=== PATIENT | male | born 1955 | race Hispanic/Latino ===

== ENCOUNTER 2018-10-22 06:55 | Day surgery (SDC) | payer OTHER ==
[2018-10-20 17:44] LABS: Absolute Monocytes 0.7 K/uL (0.1-1.3); Absolute Neutrophil 5.5 K/uL (1.8-8.0); Eosinophils % 2.7 % (0-4.4); Hematocrit 44.4 % (39.6-49.0); Lymphocytes % 23.4 % (15.3-44.8); MPV 10.3 fL (7.6-11.3); Monocytes % 8.2 % (3.3-12.3); RBC Red Blood Cell Count 4.72 M/uL (4.33-5.43)
[2018-10-20 17:55] LABS: Potassium 4.9 mmol/L (3.5-5.1)
--- NOTE | 2018-10-20 17:58 | RAD REPORT ---
EXAM DESCRIPTION: RAD - Chest Pa And Lat (2 Views) - 10/20/2018 5:47 pm CLINICAL HISTORY: Preop chest, pending cholecystectomy COMPARISON: November 2017 TECHNIQUE: PA and lateral views of the chest were obtained. FINDINGS: The lungs are clear of focal lung parenchymal process. No failure or volume overload. Rashad g markings are similar to comparison. Heart size is normal and central vasculature is within normal l imits. No pleural effusion or pneumothorax seen. No acute bony finding noted. No aortic abnormalit y. IMPRESSION: No acute cardiopulmonary process.
[2018-10-20 18:05] LABS: Albumin 3.7 g/dL (3.4-5.0); Bilirubin Direct 0.1 mg/dL (0-0.2); Bilirubin Total 0.4 mg/dL (0.2-1.0); Protein, Total 7.5 g/dL (6.4-8.2)
--- OUTSIDE RECORDS SUMMARY | 2018-10-22 06:58 | XMS REPORT | Continuity of Care Document ---
:1955 Author Organization Interface Problems Problem Status Onset Date Classification Date Comments Source Reported Medications Medication Details Route Status Patient Ordering Order Source Instructions Provider Date Allergies, Adverse Reactions, Alerts Substance Category Reaction Severity Reaction Status Date Comments Source type Reported Immunizations Immunization Date Given Site Status Last Updated Comments Source Results Order Results Value Reference Date Interpretation Comments Source Name Range Vital Signs Vital Sign Value Date Comments Source Encounters Location Location Encounter Encounter Reason Attending ADM DC Status Source Details Type Number For Provider Date Date Visit Outpatient [id number] GLENYS 12/05 [facility] [place] Outpatient [id number] GLENYS 01/02 [facility] [place] Outpatient [id number] GLENYS 01/16 [facility] [place] Outpatient [id number] GLENYS 07/24 [facility] [place] Procedures Procedure Code Date Perfomer Comments Source
[2018-10-22] MEDS ORDERED: CEFOXITIN/SWI 1gm 1 GM/10 ML SYR ONE ×2 (07:28→09:26)
[2018-10-22] MEDS ORDERED: Ringers Lactate 0 ML IV ONE (07:28)
[2018-10-22] MEDS ORDERED: NA CHLORIDE 0.9% 1,000 ML ONE ×2 (07:31→10:21)
[2018-10-22] MEDS ORDERED: PROPOFOL 200 MG/20 ML VIAL IV ONE (08:34)
[2018-10-22] MEDS ORDERED: BUPIVACAINE 0.25% PF 10 ML VIAL ONE (08:35)
[2018-10-22] MEDS ORDERED: FENTANYL CITR 100 MCG/2 ML ONE (08:35)
[2018-10-22] MEDS ORDERED: MIDAZOLAM HCL 2 MG/2 ML INJ ONE ×2 (08:37→10:19)
[2018-10-22] MEDS ORDERED: LIDOCAINE 2% MPF 5 ML VIAL ONE (08:37)
[2018-10-22] MEDS ORDERED: ROCURONIUM 50 MG/5 ML VIAL IV ONE (08:38)
[2018-10-22] MEDS ORDERED: ONDANSETRON 4 MG/2 ML VIAL ONE (08:38)
[2018-10-22] MEDS ORDERED: Phenylephrine HCl 10 MG/ML 1 ML VIAL ONE (09:24)
--- NOTE | 2018-10-22 09:44 | P.BOP ---
Preoperative diagnosis: acute cholecystitis, symptomatic cholelithiasis Postoperative diagnosis: same Primary procedure: Laparoscopic cholecystectomy Estimated blood loss: <10cc Specimen: gb Findings: as above Anesthesia: General Complications: None Transferred to: Recovery Room Condition: Good
[2018-10-22] MEDS ORDERED: GLYCOPYRROLATE 0.2 MG/ML SYR ONE (09:54)
[2018-10-22] MEDS ORDERED: NEOSTIGMINE 1 MG/ML -10 ML VIAL ONE (09:54)
[2018-10-22] MEDS ORDERED: MORPHINE 4 MG/ML SYR ONE (10:13)
[2018-10-22] MEDS ORDERED: HYDROCODONE/APAP 7.5/325 MG TAB ONE (12:12)
--- NOTE | 2018-10-27 22:36 | OP ---
Date of Procedure: 10/22/2018 Surgeon: Joel Landaverde MD Preoperative Diagnoses: Acute cholecystitis, symptomatic cholelithiasis. Postoperative Diagnoses: Acute cholecystitis, symptomatic cholelithiasis. Procedure: Laparoscopic cholecystectomy. Anesthesia: General plus local. Indications: This is the case of a male come to us with above diagnosis. Fully explained the benefi ts, alternatives, and risks of laparoscopic, possible open cholecystectomy, which include but are not limited to infection, bleeding, damage to adjacent structures, anesthesia complication, choledocholi thiasis, bile leak, pancreatitis, VT, and even . He also understands this may not relieve any s ymptoms. He might need more than one surgical intervention. He understood and signed a consent. Description Of Procedure: The patient was brought to the operating room and placed in supine positio n. Anesthesia was done without complication. Abdominal area was prepped and draped in usual sterile fashion. Marcaine 0.5% was injected for local anesthetic, followed by sharp incision of the skin in the infraumbilical region. Incision was carried down to fascia, which was opened under direct visio n. Peritoneum was encountered, opened under direct vision. Vicryl #1 placed inside of the fascia. Fabricio trocar was carefully introduced. No bleeding was obtained. I placed 3 more trocars, 5 mm eac h one of them, in the epigastric and right upper quadrant under direct visualization. This allowed m e to put a grasper in the fundus of the gallbladder, another grasper in the infundibulum, retracted t he gallbladder in the inferolateral fashion exposing the triangle of Calot, obtaining critical view o f safety. The cystic duct and cystic artery were clearly isolated free circumferentially and a conne ction between those and the gallbladder was clearly identified. I proceeded to ligate those by using at least 3 clips proximal, 1 clip distal, ligation in middle. Same was done with cystic artery. No bile leak. No bleeding. The gallbladder was removed from liver using Bovie cauterizer and removed from abdominal cavity using EndoCatch through umbilical incision. The area was inspected once again. No bile leak. No bleeding. At that moment, I proceeded to remove the trocars under direct vision. Deflated the pneumoperitoneum. Closed the fascia with #1 Vicryl. Irrigated subcutaneous tissue, c losed that with 3-0 chromic and then the skin with samantha. Sponge counts and instrument counts were correct. The patient tolerated the procedure well. The patient was sent to recovery in stable cond ition. MAKENNA/MARIE Voice ID: [id number] Report ID: [id number]
--- NOTE | 2018-10-27 22:42 | OP ---
Surgeon: Joel Landaverde MD Diagnoses: Acute cholecystitis, symptomatic cholelithiasis. Procedure: Laparoscopic cholecystectomy. Disposition: Home. Activity: As tolerated. No heavy lifting. Followup: Follow up in my office in 1 week. Call for appointment at [phone]. Keep the area dry fo r 48 hours, then may shower. Medications: See orders. MAKENNA/MARIE Voice ID: [id number] Report ID: [id number]
== END 2018-10-22 13:40 | disposition home or self-care (01) ==
LOC: OR 06:55
PROVIDERS: ATTEND Surgery
PROC: 0FT44ZZ Resection of Gallbladder, Percutaneous Endoscopic Approach (ICD-10-PCS; principal; 2018-10-22 08:15)
DX: K80.10 Calculus of gallbladder with chronic cholecystitis without obstruction (principal); E11.9 Type 2 diabetes mellitus without complications; I10 Essential (primary) hypertension; Z79.84 Long term (current) use of oral hypoglycemic drugs; Z79.82 Long term (current) use of aspirin; Z79.899 Other long term (current) drug therapy
CPT/HCPCS: 36415; 71046; 80048; 80076; 82150; 82962; 83690; 85025; 88304; J2250; J2370; J2405; J2704; J2710; J3010; J7030

== ENCOUNTER 2021-02-27 12:00 | Day surgery (SDC) | payer OTHER ==
--- NOTE | 2021-02-24 13:47 | RAD REPORT ---
EXAM DESCRIPTION: RAD - Chest Pa And Lat (2 Views) - 02/24/2021 1:09 pm CLINICAL HISTORY: microbiological lab technician pre-op COMPARISON: October 2018 TECHNIQUE: Frontal and lateral views of the chest were obtained. FINDINGS: The lungs are clear. Interstitial pattern matches comparison. No cherelle mass or lymphadenop athy seen. Heart size is normal and central vasculature is within normal limits. No pleural effusion or pneumothorax seen. No acute bony finding noted. No aortic abnormality. IMPRESSION: No acute cardiopulmonary process. No significant change from comparison study.
[2021-02-24 14:11] LABS: Potassium 4.2 mmol/L (3.5-5.1)
[2021-02-24 14:20] LABS: Absolute Lymphocytes (CBC) 2.5 K/uL (0.7-4.9); Basophils % 0.7 % (0-1.3); Hematocrit 46.5 % (39.6-49.0); Lymphocytes % 33.2 % (15.3-44.8); MPV 10.4 fL (7.6-11.3); RBC Red Blood Cell Count 4.95 M/uL (4.33-5.43)
[2021-02-24 14:46] LABS: Protime INR 0.94
[~2021-02-27 12:00] MED LIST: HEPA 1000U/500MLS 2,000 UNIT/1,000 ML BAG IV ONE; LIDOCAINE 1% 20 ML MDV ONE
[2021-02-27] MEDS ORDERED: NA CHLORIDE 0.9% 500 ML ONE (12:55)
[2021-02-27] MEDS ORDERED: MIDAZOLAM HCL 2 MG/2 ML INJ ONE (13:52)
[2021-02-27] MEDS ORDERED: HEPARIN 5000 UNIT/ML 1 ML VIAL ONE (13:53)
[2021-02-27] MEDS ORDERED: ATROPINE SULF 1 MG/10 ML SYR IV ONE (13:53)
[2021-02-27] MEDS ORDERED: VERAPAMIL HCL 10 MG/4 ML VIAL IV ONE (13:53)
[2021-02-27] MEDS ORDERED: FENTANYL CITR 100 MCG/2 ML ONE (13:53)
--- NOTE | 2021-02-27 14:55 | OP ---
Date of Procedure: 02/27/2021 Surgeon: WEST BERRIOS Procedures Performed: 1.Selective coronary angiogram. 2.Left heart catheterization. Indication: Unstable angina. Access: Right radial artery 6-Filipino closed with TR band. Complications: None. Bleeding: Less than 10 mL. Description Of Procedure: After risks, benefits, and alternatives were explained, the patient agreed to proceed and signed informed consent. The patient was brought to the cardiac catheterization [facility], prepped and draped in usual sterile fashion. Then, I accessed right radial artery using pedi atric micropuncture kit and placed a 6-Filipino Slender sheath. Then, I took a 5-Filipino [place] 4.0 cath eter into the aortic root, engaged left main and right coronary artery, took standard views and the c atheter was pushed over the wire into the LV, recorded LVEDP and then upon pullback, there was no gra dient. I removed the catheter and sheath, and placed TR band with good hemostasis. Findings: 1.Left main; distal 50% stenosis. 2.LAD; ostial 70% to 80% stenosis and then mid 80% stenosis. Diagonal branches appear normal. 3.Left circumflex; kdddsfuw-lt-hlzoc size vessel with ostial 70% stenosis. 4.Ramus intermedius is a large vessel with ostial 90% stenosis and there is an OM2 branch that has a bout 60% to 70% stenosis proximally. 5.RCA is very small, nondominant. No significant disease. 6.LVEDP of 18 mmHg. Conclusion: Severe multivessel coronary artery disease. It is a trifurcation distal left main with LAD ostially, ramus intermedius ostially, and the circumflex ostially will make the intervention very high risk. Recommendation: Recommend Surgery evaluation for triple-vessel coronary artery bypass surgery. SR/MODL Voice ID: [id number] Report ID: [id number]
[2021-02-27 15:14] VITALS: TEMP 98.4
[2021-02-27 16:49] VITALS: BP 154/87; O2SAT 96
== END 2021-02-27 16:49 | disposition home or self-care (01) ==
LOC: CCL 12:00
PROVIDERS: ATTEND Internal Medicine
DX: I25.110 Atherosclerotic heart disease of native coronary artery with unstable angina pectoris (principal); I10 Essential (primary) hypertension; E11.9 Type 2 diabetes mellitus without complications; E78.5 Hyperlipidemia, unspecified; Z20.822 Contact with and (suspected) exposure to COVID-19
CPT/HCPCS: 85025; 80048; 36415; 85610; 82947; 85730; 71046; 93458; U0003; C1893; J1644 ×2; J2250; J3010; J7040

== ENCOUNTER 2024-06-09 14:36 | Emergency (ER) | payer OTHER ==
--- NOTE | 2024-06-09 15:48 | RAD REPORT ---
Procedure: Chest Pa And Lat (2 Views) HISTORY: Cough COMPARISON: 2020 FINDINGS: The lungs appear clear of acute infiltrate. No significant pleural effusion noted. The heart is normal size. Post surgical changes involve the chest IMPRESSION: No acute abnormality is displayed.
[2024-06-09 15:54] LABS: SARS-CoV-2 Antigen CONTROL BLUE LINE VIS/BG OK; SARS-CoV-2 Antigen Rapid Res Negative (Negative)
--- NOTE | 2024-06-09 16:40 | EDPHYS ---
Physician Documentation [facility] Name: Steven Siddiqi Age: 68 yrs Sex: Male : 1955 Arrival Date: 06/09/2024 Time: 14:36 Bed 12 Private MD: ED Physician Emil Cope HPI: 06/09 16:34 This 68 yrs old Male presents to ER via Ambulatory with complaints of Cough. cricket 16:34 The patient or guardian reports airway noise, cough, described as mild, difficulty cricket breathing, flu symptoms. Onset: The symptoms/episode began/occurred 3 day(s) ago. Severity of symptoms: At their worst the symptoms were mild, moderate, in the emergency department the symptoms are unchanged. Modifying factors: The symptoms are alleviated by nothing, the symptoms are aggravated by exertion. Associated signs and symptoms: Pertinent positives: rhinorrhea, sore throat. The patient has not experienced similar symptoms in the past. Historical: - Allergies: 15:13 No Known Allergies; hb - PMHx: 17:32 Diabetes mellitus; Hypercholesterolemia; jl7 - PSHx: 15:13 CABG; hb - Immunization history:: Adult Immunizations unknown. - Infectious Disease History:: Denies. - Social history:: Smoking status: unknown. ROS: 16:35 Constitutional: Negative for fever, chills, and weight loss, Eyes: Negative for injury, cricket pain, redness, and discharge, ENT: Negative for injury, pain, and discharge, Neck: Negative for injury, pain, and swelling, Cardiovascular: Negative for chest pain, palpitations, and edema, Abdomen/GI: Negative for abdominal pain, nausea, vomiting, diarrhea, and constipation, Back: Negative for injury and pain, : Negative for injury, bleeding, discharge, and swelling, MS/Extremity: Negative for injury and deformity, Skin: Negative for injury, rash, and discoloration, Neuro: Negative for headache, weakness, numbness, tingling, and seizure, Psych: Negative for depression, anxiety, suicide ideation, homicidal ideation, and hallucinations, Allergy/Immunology: Negative for hives, rash, and allergies, Endocrine: Negative for neck swelling, polydipsia, polyuria, polyphagia, and marked weight changes, Hematologic/Lymphatic: Negative for swollen nodes, abnormal bleeding, and unusual bruising, 16:35 Respiratory: Positive for cough, "sounds productive", wheezing, expiratory, Exam: 16:35 Constitutional: This is a well developed, well nourished patient who is awake, alert, cricket and in no acute distress. Head/Face: Normocephalic, atraumatic. Eyes: Pupils equal round and reactive to light, extra-ocular motions intact. Lids and lashes normal. Conjunctiva and sclera are non-icteric and not injected. Cornea within normal limits. Periorbital areas with no swelling, redness, or edema. ENT: Nares patent. No nasal discharge, no septal abnormalities noted. Tympanic membranes are normal and external auditory canals are clear. Oropharynx with no redness, swelling, or masses, exudates, or evidence of obstruction, uvula midline. Mucous membranes moist. Neck: Trachea midline, no thyromegaly or masses palpated, and no cervical lymphadenopathy. Supple, full range of motion without nuchal rigidity, or vertebral point tenderness. No Meningismus. Chest/axilla: Normal chest wall appearance and motion. Nontender with no deformity. No lesions are appreciated. Cardiovascular: Regular rate and rhythm with a normal S1 and S2. No gallops, murmurs, or rubs. Normal PMI, no JVD. No pulse deficits. Abdomen/GI: Soft, non-tender, with normal bowel sounds. No distension or tympany. No guarding or rebound. No evidence of tenderness throughout. Back: No spinal tenderness. No costovertebral tenderness. Full range of motion. Male : Normal genitalia with no discharge or lesions. Skin: Warm, dry with normal turgor. Normal color with no rashes, no lesions, and no evidence of cellulitis. MS/ Extremity: Pulses equal, no cyanosis. Neurovascular intact. Full, normal range of motion., bilateral aka Neuro: Awake and alert, GCS 15, oriented to person, place, time, and situation. Cranial nerves II-XII grossly intact. Motor strength 5/5 in all extremities. Sensory grossly intact. Cerebellar exam normal. Normal gait. Psych: Awake, alert, with orientation to person, place and time. Behavior, mood, and affect are within normal limits. 16:35 Respiratory: the patient does not display signs of respiratory distress, Respirations: normal, no acute changes, labored breathing, is not present, Breath sounds: rhonchi, that are mild, stridor, is not appreciated, + upper airway congestion. Respiratory rate: 20 16:35 Musculoskeletal/extremity: DVT Exam: No signs of deep vein thrombosis. no pain, no swelling, no tenderness, negative Homans' sign noted on exam, no appreciated bluish discoloration, no erythema, no increased warmth, Vital Signs: 15:12 BP 185 / 87; Pulse 88; Resp 20; Temp 99.2(O); Pulse Ox 100% on R/A; Weight 81.65 kg; hb Height 5 ft. 6 in. ; Pain 0/10; 17:32 BP 141 / 73; Pulse 115; Resp 15; Pulse Ox 100% ; jl7 18:10 BP 143 / 75; Pulse 132; Resp 15; Temp 99.1; Pulse Ox 96% ; jl7 15:12 Body Mass Index 29.05 (81.65 kg, 167.64 cm) hb 15:12 Pain Scale: Adult hb MDM: 14:45 Medical Screening Exam initiated cricket 16:36 Differential diagnosis: obstructed airway, tracheal injury, bronchitis, flu, URI. cricket Antibiotic administration: The patient is discharged and will get outpatient antibiotics, Zithromax. Differential Diagnosis: Obstructed Airway Bronchitis Influenza Upper Respiratory Infection Pharyngitis Allergic Rhinitis Asthma Exacerbation Viral Syndrome. Data reviewed: vital signs, nurses notes, lab test result(s), radiologic studies, plain films. Consideration of Admission/Observation Escalation of care including admission/observation considered. I considered the following discharge prescriptions or medication management in the emergency department Medications were administered in the Emergency Department. See MAR. Independent interpretation of the following test(s) in the Emergency Department X-Ray: My interpretation is cxr. Test considered but Not performed: Labs: no labs. Care significantly affected by the following chronic conditions: none. Counseling: I had a detailed discussion with the patient and/or guardian regarding the historical points, exam findings, and any diagnostic results supporting the discharge/admit diagnosis, lab results, radiology results, the need for outpatient follow up, for definitive care, a family practitioner, a insights strategist. 06/09 14:46 Order name: Flu; Complete Time: 16:32 [facility] 06/09 14:46 Order name: SARS RAPID; Complete Time: 16:32 [facility] 06/09 14:46 Order name: Strep [facility] 06/09 15:58 Order name: Throat Culture [facility] 06/09 14:46 Order name: Chest Pa And Lat (2 Views) XRAY; Complete Time: 16:32 cricket Administered Medications: 17:40 Drug: Rocephin (cefTRIAXone) IM 1 grams IM once Route: IM; Site: left ventrogluteal; jl7 18:10 Follow up: Response: No adverse reaction jl7 17:48 Drug: Levalbuterol Inhalation 2.5 mg Inhalation once Route: Inhalation; jl7 18:11 Follow up: Response: No adverse reaction jl7 17:48 Drug: Dexamethasone IM 10 mg IM once Route: IM; Site: left deltoid; jl7 18:11 Follow up: Response: No adverse reaction jl7 17:48 Drug: Dexamethasone PO 1 mg PO once; to neb Route: PO; jl7 18:11 Follow up: Response: No adverse reaction jl7 17:48 Drug: Tussionex Pennkinetic ER PO Suspension 5 ml PO once Route: PO; jl7 18:11 Follow up: Response: No adverse reaction jl7 17:48 Drug: AZITHromycin PO 500 mg PO once Route: PO; jl7 18:11 Follow up: Response: No adverse reaction jl7 Disposition Summary: 06/09/24 16:40 Discharge Ordered Notes: Location: Home cricket Problem: new cricket Symptoms: have improved cricket Condition: Stable cricket Diagnosis - Cough cricket - Acute bronchospasm cricket - Fever, unspecified cricket - Acute upper respiratory infection, unspecified cricket Followup: cricket - With: Private Physician - When: 2 - 3 days - Reason: Recheck today's complaints, Continuance of care, Re-evaluation by your physician Followup: cricket - With: Tom Pichardo MD - When: 2 - 3 days - Reason: Recheck today's complaints, Re-evaluation by your physician Discharge Instructions: - Discharge Summary Sheet cricket - Bronchospasm, Adult cricket - Fever, Adult cricket - Upper Respiratory Infection, Adult cricket - Cool Mist Vaporizer cricket - Upper Respiratory Infection, Adult, Adyz-zu-Tfwu cricket - Cough, Adult, Flib-fi-Xhrr cricket - Bronchospasm, Adult, Czis-oj-Mquo cricket - Cough, Adult cricket Forms: - Medication Reconciliation Form cricket - Antibiotic Education cricket - Prescription Opioid Use cricket - Patient Portal Instructions cricket - Leadership Thank You Letter [facility] Prescriptions: - dexamethasone 4 mg Oral tablet - take 1 tablet ORAL route once daily; 5 tablet; Refills: 0, Product Selection [facility] Permitted - Tessalon Perles 100 mg Oral capsule - take 2 capsule ORAL route every 8 hours As needed; 30 capsule; Refills: 0, [facility] Product Selection Permitted - Guaifenesin AC 10-100 mg/5 mL Oral liquid - take 7.5 milliliter ORAL route every 6 hours As needed; 160 milliliter; cricket Refills: 0, Product Selection Permitted - Zithromax 500 mg Oral tablet - take 1 tablet ORAL route once daily for 5 days; 5 tablet; Refills: 0, Product cricket Selection Permitted Signatures: Dispatcher [employer] EDEmil Chris MD MD cha Baxter, Heather, RN RN Mikey Shields RN RN jl7
--- NOTE | 2024-06-09 16:40 | ER ---
Nurse's Notes [facility] Name: Steven Siddiqi Age: 68 yrs Sex: Male : 1955 Arrival Date: 06/09/2024 Time: 14:36 Bed 12 Private MD: Diagnosis: Cough;Acute bronchospasm;Fever, unspecified;Acute upper respiratory infection, unspecified Presentation: 06/09 15:12 Chief complaint: Cough x 2 weeks. Coronavirus screen: Client presents with at least one hb sign or symptom that may indicate coronavirus-19. Standard/surgical mask placed on the client. Provider contacted for isolation considerations. Ebola Screen: No symptoms or risks identified at this time. Initial Sepsis Screen: Does the patient meet any 2 criteria? No. Patient's initial sepsis screen is negative. Does the patient have a suspected source of infection? No. Patient's initial sepsis screen is negative. Risk Assessment: Do you want to hurt yourself or someone else? Patient reports no desire to harm self or others. Onset of symptoms was May 30, 2024. 15:12 Method Of Arrival: Ambulatory hb 15:12 Acuity: MORAIMA 4 hb Historical: - Allergies: 15:13 No Known Allergies; hb - PMHx: 17:32 Diabetes mellitus; Hypercholesterolemia; jl7 - PSHx: 15:13 CABG; hb - Immunization history:: Adult Immunizations unknown. - Infectious Disease History:: Denies. - Social history:: Smoking status: unknown. Screenin:00 [facility] ED Fall Risk Assessment (Adult) History of falling in the last 3 months, jl7 including since admission No falls in past 3 months (0 pts) Confusion or Disorientation No (0 pts) Intoxicated or Sedated No (0 pts) Impaired Gait No (0 pts) Mobility Assist Device Used No (0 pt) Altered Elimination No (0 pt) Score/Fall Risk Level 0 - 2 = Low Risk Oriented to surroundings, Maintained a safe environment. Abuse screen: Denies threats or abuse. Denies injuries from another. Nutritional screening: No deficits noted. Tuberculosis screening: No symptoms or risk factors identified. Assessment: 16:30 General: Appears in no apparent distress. uncomfortable, Behavior is calm, cooperative, jl7 appropriate for age. Pain: Denies pain. Neuro: Level of Consciousness is awake, alert, obeys commands, Oriented to person, place, time, situation. Cardiovascular: Patient's skin is warm and dry. Respiratory: Airway is patent Respiratory effort is even, unlabored, Respiratory pattern is regular, symmetrical. Derm: Skin is pink, warm \T\ dry. Vital Signs: 15:12 BP 185 / 87; Pulse 88; Resp 20; Temp 99.2(O); Pulse Ox 100% on R/A; Weight 81.65 kg; hb Height 5 ft. 6 in. ; Pain 0/10; 17:32 BP 141 / 73; Pulse 115; Resp 15; Pulse Ox 100% ; jl7 18:10 BP 143 / 75; Pulse 132; Resp 15; Temp 99.1; Pulse Ox 96% ; jl7 15:12 Body Mass Index 29.05 (81.65 kg, 167.64 cm) hb 15:12 Pain Scale: Adult hb ED Course: 14:40 Patient arrived in ED. mr 14:45 Emil Cope MD is Attending Physician. cricket 15:13 Triage completed. hb 15:14 Arm band placed on. hb 15:17 Strep Sent. hb 15:17 SARS RAPID Sent. hb 15:17 Flu Sent. hb 15:39 Chest Pa And Lat (2 Views) XRAY In Process Unspecified. EDMS 16:40 Tom Pichardo MD is Referral Physician. cricket 17:00 Patient has correct armband on for positive identification. Bed in low position. Call jl7 light in reach. Side rails up X 1. 17:01 Mikey Shields, RN is Primary Nurse. jl7 18:12 Provided Education on: discharge. jl7 18:12 No provider procedures requiring assistance completed. Patient did not have IV access jl7 during this emergency room visit. Administered Medications: 17:40 Drug: Rocephin (cefTRIAXone) IM 1 grams IM once Route: IM; Site: left ventrogluteal; jl7 18:10 Follow up: Response: No adverse reaction jl7 17:48 Drug: Levalbuterol Inhalation 2.5 mg Inhalation once Route: Inhalation; jl7 18:11 Follow up: Response: No adverse reaction jl7 17:48 Drug: Dexamethasone IM 10 mg IM once Route: IM; Site: left deltoid; jl7 18:11 Follow up: Response: No adverse reaction jl7 17:48 Drug: Dexamethasone PO 1 mg PO once; to neb Route: PO; jl7 18:11 Follow up: Response: No adverse reaction jl7 17:48 Drug: Tussionex Pennkinetic ER PO Suspension 5 ml PO once Route: PO; jl7 18:11 Follow up: Response: No adverse reaction jl7 17:48 Drug: AZITHromycin PO 500 mg PO once Route: PO; jl7 18:11 Follow up: Response: No adverse reaction jl7 Medication: 17:32 VIS not applicable for this client. jl7 Outcome: 16:40 Discharge ordered by . cricket 18:12 Discharged to home ambulatory, jl7 18:12 Condition: stable 18:12 Discharge instructions given to patient, family, Instructed on discharge instructions, follow up and referral plans. medication usage, Demonstrated understanding of instructions, follow-up care, medications, Prescriptions given X 4, 18:12 Patient left the ED. jl7 Signatures: Dispatcher [employer] EDMS Emil Cope MD MD cha Rivera, Mary, Reg Evan mr Tracie Summers, RN Mikey Lao RN RN jl7
[2024-06-09] MEDS ORDERED: CEFTRIAXONE 1000 MG/VIAL ONE (17:13)
[2024-06-09] MEDS ORDERED: HYDROCODONE/CHLORPHEN 5 ML/OSYR ONE (17:13)
[2024-06-09] MEDS ORDERED: LEVALBUTEROL 1.25 MG/3 ML NEB ONE (17:13)
[2024-06-09] MEDS ORDERED: dexAMETHasone 4 MG/ML VIAL ONE (17:14)
[2024-06-09] MEDS ORDERED: LIDOCAINE 1% MPF 2 ML AMPULE ONE (17:14)
[2024-06-09] MEDS ORDERED: dexAMETHasone 10 MG/ML VIAL ONE (17:14)
[2024-06-09] MEDS ORDERED: AZITHROMYCIN 250 MG TAB ONE (17:14)
[2024-06-09 18:35] VITALS: BP 143/75; TEMP 99.1; O2SAT 96
== END 2024-06-09 18:12 | disposition home or self-care (01) ==
LOC: ER 14:36
DX: J06.9 Acute upper respiratory infection, unspecified (principal); R05.9 Cough, unspecified; R50.9 Fever, unspecified; J98.01 Acute bronchospasm; E11.9 Type 2 diabetes mellitus without complications; E78.00 Pure hypercholesterolemia, unspecified; Z11.52 Encounter for screening for COVID-19; Z95.1 Presence of aortocoronary bypass graft
CPT/HCPCS: 87070; 36415; 87081; 87804 ×2; 71046; 96372; 99285; 87811; J1100 ×2; J7614; J0696